=== PATIENT | female | born 1980 ===

== ENCOUNTER 2016-09-25 20:37 | Emergency (ER) | payer OTHER ==
[2016-09-25 20:38] VITALS: BMI 24.4
[2016-09-25 21:33] VITALS: BP 125/85
[2016-09-25 21:59] VITALS: RESP 16; O2SAT 98
--- NOTE | 2016-09-25 22:12 | ED PDOC ---
Arrival/HPI - General Chief Complaint: Back Pain Time Seen by Provider: 09/25/16 21:42 Historian: Patient - History of Present Illness Narrative History of Present Illness (Text): 09/25/16 22:09 This 35 yo female with pmh UTI, presents to this ED c/o persisting b/l lower back pain x 1 month. Patient stated she was Dx. with UTI x 3 weeks ago, She was give Cipro at [facility]. Patient stated dysuria, and urinary frequency improved, but she continues with back pain. Patient denies hematuria , vaginal discharge, vaginal bleeding, fever, sob, cp, abdominal pain, pelvic pain, n/v, or rectal bleeding. Patient noted she is late on her menstrual cycle. Time/Duration: < month Quality: Aching Context: Home Past Medical History - Provider Review Nursing Documentation Reviewed: Yes - Infectious Disease Hx of Infectious Diseases: None - Tetanus Immunization Tetanus Immunization: Unknown - Past Medical History Past Medical History: No Previous - Cardiac Hx Cardiac Disorders: No - Pulmonary Hx Respiratory Disorders: No - Neurological Hx Neurological Disorder: No - HEENT Hx HEENT Disorder: No - Renal Hx Renal Disorder: No - Endocrine/Metabolic Hx Endocrine Disorders: No - Hematological/Oncological Hx Blood Disorders: No - Integumentary Hx Dermatological Disorder: No - Musculoskeletal/Rheumatological Hx Musculoskeletal Disorders: No - Gastrointestinal Hx Gastrointestinal Disorders: No - Genitourinary/Gynecological Hx Genitourinary Disorders: No - Psychiatric Hx Psychophysiologic Disorder: No Hx Substance Use: No - Surgical History Other/Comment: Breast reduction - Anesthesia Hx Anesthesia: Yes Hx Anesthesia Reactions: No - Suicidal Assessment Feels Threatened In Home Enviroment: No Family/Social History - Physician Review Nursing Documentation Reviewed: Yes Family/Social History: No Known Family HX Smoking Status: Never Smoked Hx Alcohol Use: No Hx Substance Use: No Hx Substance Use Treatment: No Allergies/Home Meds Allergies/Adverse Reactions: Allergies No Known Allergies Allergy (Verified 02/26/16 10:33) Review of Systems - Review of Systems Constitutional: Normal. absent: Fatigue, Weight Change Eyes: Normal ENT: Normal Respiratory: Normal Cardiovascular: Normal Gastrointestinal: Normal Genitourinary Female: Normal Musculoskeletal: Back Pain Skin: Normal Neurological: Normal Endocrine: Normal Hemo/Lymphatic: Normal Psychiatric: Normal Physical Exam Vital Signs Temp Pulse Resp BP Pulse Ox 09/25/16 23:08 98.0 F 85 16 98 09/25/16 21:58 98.2 F 82 16 98 09/25/16 21:26 98.2 F 79 17 125/85 100 Temperature: Afebrile Blood Pressure: Normal Pulse: Regular Respiratory Rate: Normal Appearance: Positive for: Well-Appearing, Non-Toxic, Comfortable Pain Distress: None Mental Status: Positive for: Alert and Oriented X 3 - Systems Exam Head: Present: Atraumatic, Normocephalic Pupils: Present: PERRL Extroacular Muscles: Present: EOMI Conjunctiva: Present: Normal Mouth: Present: Moist Mucous Membranes Neck: Present: Normal Range of Motion Respiratory/Chest: Present: Clear to Auscultation, Good Air Exchange. No: Respiratory Distress, Accessory Muscle Use Cardiovascular: Present: Regular Rate and Rhythm, Normal S1, S2. No: Murmurs Abdomen: Present: Normal Bowel Sounds. No: Tenderness, Distention, Peritoneal Signs Back: Present: Normal Inspection, Other (No skin rash on her back). No: CVA Tenderness, Midline Tenderness, Paraspinal Tenderness, Pain with Leg Raise Upper Extremity: Present: Normal Inspection. No: Cyanosis, Edema Lower Extremity: Present: Normal Inspection. No: Edema Neurological: Present: GCS=15, CN II-XII Intact, Speech Normal, Motor Func Grossly Intact, Normal Sensory Function, Normal Cerebellar Funct, Gait Normal Skin: Present: Warm, Dry, Normal Color. No: Rashes Psychiatric: Present: Alert, Oriented x 3 Medical Decision Making ED Course and Treatment: 09/25/16 23:22 Re-evaluation. Patient feels better. Discussed results and plan with patient who expresses understanding. All questions answered and there is agreement with the plan to discharge home with instructions. Patient stable for discharge. Return if symptoms persist or worsen. Re-evaluation Time: 23:22 Reassessment Condition: Re-examined, Improved - Lab Interpretations Microbiology Results: Microbiology Results 09/25/16 22:19 Urine Urine Culture - Final No Growth (<1,000 CFU/ML) Lab Results: Lab Results 09/25/16 22:19: Urine Color Yellow, Urine Appearance Sl cloudy, Urine pH 6.5, Ur Specific [place] 1.025, Urine Protein Negative, Urine Glucose (UA) Negative, Urine Ketones Negative, Urine Blood Small H, Urine Nitrate Negative, Urine Bilirubin Negative, Urine Urobilinogen 0.2, Ur Leukocyte Esterase Moderate H, Urine RBC 1 - 3, Urine WBC 15 - 20, Ur Epithelial Cells 10 - 12, Urine Bacteria Many, Urine HCG, Qual Negative I have reviewed the lab results: Yes Interpretation: Abnormal lab values - Medication Orders Current Medication Orders: Discontinued Medications Azithromycin (Zithromax) 1,000 mg PO STAT STA PRN Reason: Protocol Stop: 09/25/16 22:30 Last Admin: 09/25/16 22:47 Dose: 1,000 MG Ceftriaxone Sodium (Rocephin) 250 mg IM STAT STA PRN Reason: Protocol Stop: 09/25/16 22:29 Last Admin: 09/25/16 22:47 Dose: 250 MG IM Administration Charges Document 09/25/16 22:47 [email or web address] (Rec: 09/25/16 22:47 [email or web address] [id number]) Injection Site MAR Injection Site Right Gluteus Osmany Charges for Administration # of IM Administrations 1 Disposition/Present on Arrival - Present on Arrival Any Indicators Present on Arrival: No History of DVT/PE: No History of Uncontrolled Diabetes: No Urinary Catheter: No History of Decub. Ulcer: No History Surgical Site Infection Following: None - Disposition Have Diagnosis and Disposition been Completed?: Yes Diagnosis: Back pain, UTI (urinary tract infection) Disposition: HOME/ ROUTINE Disposition Time: 23:23 Patient Plan: Discharge Condition: GOOD Discharge Instructions (ExitCare): Urinary Tract Infection in Women (ED), Back Pain (ED) Additional Instructions: Call private [facility] doctor for follow up visit in 3-5 days. Take medication as instructed. Return to emergency if symptoms worsen. Review GC/Chlamydia test , and urine culture with your doctor. Prescriptions: Doxycycline Monohydrate 100 mg PO BID #28 tablet Nitrofurantoin Macrocrystals [Macrobid] 100 mg PO BID #14 cap Referrals: Varghese Pablo MD [Primary Care Provider] - Follow up with primary Forms: WORK NOTE
[2016-09-25] MEDS ORDERED: cefTRIAXone (Rocephin) 250 mg Inj IM STA (22:28)
[2016-09-25 22:49] LABS: PH,URINE 6.5 (4.7-8.0); URINE BILIRUBIN NEGATIVE (NEGATIVE); URINE BLOOD SMALL (NEGATIVE); URINE GLUCOSE (UA) NEGATIVE (NEGATIVE); URINE KETONE NEGATIVE (NEGATIVE); URINE LEUKOCYTE ESTERASE MODERATE Leu/uL (NEGATIVE); URINE PROTEIN NEGATIVE mg/dL (<30 mg/dL); URINE UROBILINOGEN 0.2 E.U./dL (<1 E.U./dL)
[2016-09-25 22:50] LABS: URINE APPEARANCE SL CLOUDY (CLEAR); URINE COLOR YELLOW (YELLOW)
[2016-09-25 23:03] LABS: URINE BACTERIA MANY (NEG); URINE WBC 15 - 20 /hpf (0-6)
[2016-09-25 23:08] VITALS: PULSE 85; TEMP 98
== END 2016-09-25 23:32 | disposition home or self-care (01) ==
LOC: ED 20:37 → MERGE 20:37 → ED 23:32
DX: N39.0 Urinary tract infection, site not specified (principal); M54.9 Dorsalgia, unspecified
CPT/HCPCS: 81001; 84703; 87086; 87491; 87591; 96372; 99282; J0696

== ENCOUNTER 2016-10-01 13:54 | Emergency (ER) | payer OTHER ==
[2016-10-01 14:00] VITALS: BMI 25.7
[2016-10-01 14:03] VITALS: TEMP 98; O2SAT 99
[2016-10-01] MEDS ORDERED: Sodium Chloride 0.9% 1,000 ML IV STA (14:59)
[2016-10-01 15:14] LABS: URINE BILIRUBIN NEGATIVE (NEGATIVE); URINE BLOOD TRACE-INTACT (NEGATIVE); URINE GLUCOSE (UA) NEGATIVE (NEGATIVE); URINE KETONE NEGATIVE (NEGATIVE); URINE LEUKOCYTE ESTERASE TRACE Leu/uL (NEGATIVE); URINE PROTEIN 30 mg/dL (<30 mg/dL)
[2016-10-01 15:15] LABS: URINE APPEARANCE CLEAR (CLEAR); URINE COLOR DARK YELLOW (YELLOW)
[2016-10-01 15:22] LABS: URINE EPITHELIAL CELLS MANY /hpf (0-5); URINE RBC 0 - 2 /hpf (0-2); URINE WBC 0 - 2 /hpf (0-6)
[2016-10-01 15:23] LABS: URINE BACTERIA TRACE (NEG)
[2016-10-01 15:26] LABS: ADD MANUAL DIFF? NO
--- NOTE | 2016-10-01 15:26 | ED PDOC ---
Arrival/HPI - General Chief Complaint: Back Pain Time Seen by Provider: 10/01/16 14:44 Historian: Patient - History of Present Illness Narrative History of Present Illness (Text): 10/01/16 15:23 35yo female who present with complaint of suprapubic pain, lower back pain and dysuria x 4weeks. She notes that she has been on different antibiotics for UTI. States she was seen by her [facility]ARDER, PMD, [place] [facility] and here in [place] for similar symptoms and was given different antibiotics for UTI. She reports that she took the antibiotics but still having same symptoms. She is currently on MAcrobid and Doxycline. She denies fever, chills, hematuria, fever, chills, nausea, vomiting, diarrhea, constipation, vaginal discharge, any other complaint. Past Medical History - Provider Review Nursing Documentation Reviewed: Yes - Past Medical History Past Medical History: No Previous - Psychiatric Hx Depression: No Hx Emotional Abuse: No Hx Physical Abuse: No Hx Substance Use: No - Past Surgical History Past Surgical History: No Previous - Suicidal Assessment Feels Threatened In Home Enviroment: No Family/Social History - Physician Review Nursing Documentation Reviewed: Yes Family/Social History: Unknown Family HX Smoking Status: Never Smoked Hx Alcohol Use: No Hx Substance Use: No Hx Substance Use Treatment: No Allergies/Home Meds Allergies/Adverse Reactions: Allergies No Known Allergies Allergy (Verified 10/01/16 13:59) Home Medications: Home Meds Medication Instructions Recorded Confirmed Doxycycline Monohydrate 100 mg PO BID 10/01/16 10/01/16 [Doxycycline Monohydrate] Nitrofurantoin Monohyd/M-Cryst 100 mg PO BID 10/01/16 10/01/16 [Nitrofurantoin [place]-Mcr 100 mg] Phenazopyridine [Pyridium] 200 mg PO BID 10/01/16 10/01/16 Review of Systems - Physician Review All systems were reviewed & negative as marked: Yes - Review of Systems Constitutional: Normal Eyes: Normal ENT: Normal Respiratory: Normal Cardiovascular: Normal Gastrointestinal: Abdominal Pain. absent: Constipation, Diarrhea, Nausea, Vomiting, Hematochezia, Hematemesis Genitourinary Female: Dysuria, Frequency. absent: Hematuria Musculoskeletal: Normal Skin: Normal Neurological: Normal Endocrine: Normal Hemo/Lymphatic: Normal Psychiatric: Normal Physical Exam Vital Signs Reviewed: Yes Vital Signs Temp Pulse Resp BP Pulse Ox 10/01/16 15:33 79 18 122/76 99 10/01/16 13:59 98 F 82 16 124/82 99 Temperature: Afebrile Blood Pressure: Normal Pulse: Regular Respiratory Rate: Normal Appearance: Positive for: Well-Appearing, Non-Toxic, Comfortable Pain Distress: None Mental Status: Positive for: Alert and Oriented X 3 - Systems Exam Head: Present: Atraumatic, Normocephalic Pupils: Present: PERRL Extroacular Muscles: Present: EOMI Conjunctiva: Present: Normal Mouth: Present: Moist Mucous Membranes Neck: Present: Normal Range of Motion Respiratory/Chest: Present: Clear to Auscultation, Good Air Exchange. No: Respiratory Distress, Accessory Muscle Use Cardiovascular: Present: Regular Rate and Rhythm, Normal S1, S2. No: Murmurs Abdomen: Present: Tenderness (Suprapubic tenderness), Normal Bowel Sounds, Other (Soft). No: Distention, Peritoneal Signs, Rebound, Guarding, McBurney's Point Tender, Mass/Organomegaly Genitourinary/Pelvic Exam: No: Cervical Motion Tendernes Back: Present: Paraspinal Tenderness (Left paralumbar tenderness). No: CVA Tenderness Upper Extremity: Present: Normal Inspection. No: Cyanosis, Edema Lower Extremity: Present: Normal Inspection. No: Edema Neurological: Present: GCS=15, CN II-XII Intact, Speech Normal Skin: Present: Warm, Dry, Normal Color. No: Rashes Psychiatric: Present: Alert, Oriented x 3, Normal Insight, Normal Concentration Medical Decision Making ED Course and Treatment: 10/01/16 21:58 Pt in ED for stated history. She was comfortable in ED. Noted to be eating in ED. Her Lab was unremarkable. Transvaginal/Pelvic US - Negative She was advised to continue with the abx she is currently taking and referred to a Urologist. TRT ED for any new or worsening symptoms - Lab Interpretations Lab Results: 10/01/16 15:12 10/01/16 15:12 Lab Results 10/01/16 15:12: WBC 5.8, RBC 3.87, Hgb 11.9 L, Hct 35.0 L, MCV 90.4, MCH 30.7, MCHC 34.0, RDW 13.5, Plt Count 192, MPV 11.6 H, Gran % 57.9, Lymph % (Auto) 29.5 , [place] % (Auto) 10.4 H, Eos % (Auto) 1.7, Baso % (Auto) 0.5, Gran # 3.33, Lymph # 1.7, [place] # 0.6, Eos # 0.1, Baso # 0.03, PT 12.7 H, INR 1.18 H, APTT 29.8, Sodium 141, Potassium 3.7, Chloride 105, Carbon Dioxide 27, Anion Gap 13, BUN 15 , Creatinine 0.6, Est GFR ( Amer) > 60, Est GFR (Non-Af Amer) > 60, Random Glucose 80, Calcium 9.3, Total Bilirubin 0.6, AST 27, ALT 31, Alkaline Phosphatase 47, Total Protein 7.9, Albumin 4.0, Globulin 3.8, Albumin/Globulin Ratio 1.1 10/01/16 14:51: Urine Color Dark yellow, Urine Appearance Clear, Urine pH 6.0, Ur Specific [place] >= 1.030, Urine Protein 30 H, Urine Glucose (UA) Negative, Urine Ketones Negative, Urine Blood Trace-intact H, Urine Nitrate Positive H, Urine Bilirubin Negative, Urine Urobilinogen 1.0 H, Ur Leukocyte Esterase Trace H, Urine RBC 0 - 2, Urine WBC 0 - 2, Ur Epithelial Cells Many, Urine Bacteria Trace - RAD Interpretation Radiology Orders: 10/01/16 14:59 PELVIS ULTRASOUND [US] Routine TRANSVAGINAL [US] Stat - Medication Orders Current Medication Orders: Discontinued Medications Sodium Chloride (Sodium Chloride 0.9%) 1,000 mls @ 999 mls/hr IV .Q1H1M STA Stop: 10/01/16 15:59 Last Admin: 10/01/16 15:27 Dose: 999 MLS/HR eMAR Start Stop Document 10/01/16 15:27 SE (Rec: 10/01/16 15:27 [id number]) Intravenous Solution Start Date 10/01/16 Start Time 15:27 Ketorolac Tromethamine (Toradol) 30 mg IVP STAT STA Stop: 10/01/16 15:02 Last Admin: 10/01/16 15:27 Dose: 30 MG IVP Administration Document 10/01/16 15:27 SE (Rec: 10/01/16 15:27 [id number]) Charges for Administration # of IVP Administrations 1 Disposition/Present on Arrival - Present on Arrival Any Indicators Present on Arrival: No History of DVT/PE: No History of Uncontrolled Diabetes: No Urinary Catheter: No History of Decub. Ulcer: No History Surgical Site Infection Following: None - Disposition Have Diagnosis and Disposition been Completed?: Yes Diagnosis: UTI (urinary tract infection) Disposition: HOME/ ROUTINE Disposition Time: 17:45 Patient Plan: Discharge Condition: STABLE Discharge Instructions (ExitCare): Urinary Tract Infection in Women (ED) Additional Instructions: Follow up with your Doctor/Urologist Return to ED for any new or worsening symptoms Prescriptions: Ibuprofen [Motrin Tab] 600 mg PO Q6 #20 tab Referrals: Varghese Pablo MD [Primary Care Provider] - Follow up with primary
[2016-10-01 15:33] VITALS: BP 122/76; PULSE 79; RESP 18
[2016-10-01 15:35] LABS: BASO # 0.03 K/mm3 (0.0-2.0); BASO % 0.5 % (0.0-3.0); EOS # 0.1 (0.0-0.7); EOS % 1.7 % (1.5-5.0); GRAN # 3.33 (1.4-6.5); GRAN % 57.9 % (50.0-68.0); LYMPH # 1.7 (1.2-3.4); LYMPH % 29.5 % (22.0-35.0); MEAN CELL VOLUME 90.4 fL (80.0-105.0); MEAN CORPUSCULAR HEMOGLOBIN 30.7 pg (25.0-35.0); MEAN PLATELET VOLUME 11.6 fl (7.0-11.0); MONO # 0.6 (0.1-0.6); MONO % 10.4 % (1.0-6.0); PLATELET COUNT 192 10^3/uL (120.0-450.0); RED CELL DISTRIBUTION WIDTH 13.5 % (11.5-14.5); WHITE BLOOD COUNT 5.8 10^3/ul (4.5-11.0)
[2016-10-01 15:41] LABS: ALB/GLOB RATIO 1.1 (1.1-1.8); ALKALINE PHOSPHATASE 47 U/L (38-133); ALT/SGPT 31 U/L (7-56); AST/SGOT 27 U/L (15-39); BILIRUBIN,TOTAL 0.6 mg/dL (0.2-1.3); BLOOD UREA NITROGEN 15 mg/dL (7-21); CALCIUM 9.3 mg/dL (8.4-10.5); CARBON DIOXIDE 27 mmol/L (21-33); CHLORIDE 105 mmol/L (98-107); GFR AFRICAN-AMERICAN > 60; GLUCOSE,RANDOM 80 mg/dL (70-110); INR 1.18 (0.93-1.08); PARTIAL THROMBOPLASTIN TIME 29.8 Seconds (23.7-30.8); POTASSIUM 3.7 mmol/L (3.6-5.0); SODIUM 141 mmol/L (132-148); TOTAL PROTEIN 7.9 g/dL (5.8-8.3)
--- NOTE | 2016-10-01 17:40 | US ---
HISTORY: pelvis pain COMPARISON: None available. TECHNIQUE: Endovaginal ultrasound examination of the pelvis was performed. FINDINGS: UTERUS: Measures 9.2 x 5.4 cm. Normal in size and appearance. No fibroid or other mass lesion seen. ENDOMETRIUM: Measures 9.7 mm in diameter. Unremarkable. CERVIX: No cervical abnormality identified. RIGHT OVARY: Measures 2.3 x 2.1 x 2 cm. No solid mass. Normal flow. LEFT OVARY: Measures 2 x 1.7 x 2.5 cm. No solid mass. Normal flow. FREE FLUID: No significant free fluid noted. OTHER FINDINGS: None. IMPRESSION: No evidence of acute pathology or suspicious lesion in the uterus and ovaries. No evidence of ovarian torsion.
--- NOTE | 2016-10-01 18:54 | US ---
Transabdominal ultrasound of the pelvis. Please refer to the endovaginal ultrasound report.
== END 2016-10-01 17:55 | disposition home or self-care (01) ==
LOC: ED 13:54
DX: N39.0 Urinary tract infection, site not specified (principal)
CPT/HCPCS: 76830; 76856; 80053; 81001; 85025; 85610; 85730; 87086; 87491; 87591; 96374; 99284; J1885; J7040